=== PATIENT | female | born 1975 | race American Indian/Alaskan Native ===

== ENCOUNTER 2019-06-01 22:21 | Emergency (ER) | payer MEDICAID, OTHER ==
[2019-06-01 22:34] VITALS: BP 155/104
[2019-06-01 23:18] LABS: Basophils # (Auto) 0.1 K/mm3 (0.0-0.1); Basophils % (Auto) 0.8 % (0.0-1.8); Eosinophils # (Auto) 0.1 K/mm3 (0.0-0.4); Eosinophils % (Auto) 1.5 % (0.0-4.3); Hematocrit 32.5 % (30.3-42.9); Hemoglobin 10.9 gm/dl (10.1-14.3); Lymphocytes # (Auto) 2.5 K/mm3 (1.2-5.4); Lymphocytes % (Auto) 26.8 % (13.4-35.0); Mean Corpuscular HGB Conc 34 % (30-34); Mean Corpuscular Volume 80 fl (79-97); Monocytes # (Auto) 0.8 K/mm3 (0.0-0.8); Platelet Count 299 K/mm3 (140-440); Red Blood Count 4.06 M/mm3 (3.65-5.03); Red Cell Distribution Width 17.5 % (13.2-15.2)
[2019-06-02 00:24] LABS: Albumin 3.9 g/dL (3.9-5); Calcium 9.3 mg/dL (8.4-10.2)
[2019-06-02 00:24] LABS: Bilirubin,Urine NEG (Negative); Blood,Urine SM (Negative); Color,Urine Yellow (Yellow); Urobilinogen,Urine < 2.0 mg/dL (<2.0)
--- NOTE | 2019-06-02 00:44 | XRay Report ---
CHEST PA AND LATERAL VIEWS INDICATION: dyspnea. COMPARISON: None. FINDINGS: Support devices: None. Heart: Mildly enlarged Lungs/Pleura: There is pulmonary venous hypertension there may be mild interstitial edema. No consoli dation, significant effusion, or pneumothorax. IMPRESSION: 1. Cardiomegaly. 2. Pulmonary venous hypertension. Signer Name: Valente Mcallister MD Signed: 06/02/2019 12:40 AM Workstation Name: [id number]
[2019-06-02] MEDS ORDERED: LASIX PO ONE (01:30)
[2019-06-02] MEDS ORDERED: K-DUR PO ONE (01:30)
--- NOTE | 2019-06-02 03:03 | Emergency Department Report ---
ED General Adult HPI - General Chief complaint: Abdominal Pain Stated complaint: PAIN IN LEG/STOMACH/BACK/SOB Time Seen by Provider: 06/02/19 00:00 Source: patient Mode of arrival: Ambulatory Limitations: No Limitations - History of Present Illness Initial comments: Patient is a 43-year-old -[place] female with no past medical history presents to the ED with complaint of acute onset persistent diffuse abdominal pain with abdominal fullness and dysuria for the last 2 weeks. The patient also complains of shortness of breath with exertion, and states that she is unable to lay flat on the bed because of shortness of breath. Patient also complains of bilateral lower extremity swelling for the last 1 week. Patient denies chest pain, dizziness, fever, chills, vaginal bleeding, dysuria, urinary frequency and urgency, syncope, cough, sore throat, change in vision, palpitations, diarrhea or nausea and vomiting. Patient states that she has not seen a primary care physician in many years and generally doesn't go to hospitalist. MD Complaint: dyspnea on exertion; orthopnea, abdominal fullness and leg swelling -: Gradual, week(s) (2) Location: chest, abdomen, lower extremity (bilaterally) Radiation: non-radiation Severity scale (0 -10): 8 Quality: aching Consistency: constant Improves with: none Worsens with: movement, other (laying flat) Associated Symptoms: denies other symptoms, shortness of breath, weakness. denies: confusion, chest pain, cough, diaphoresis, fever/chills, headaches, loss of appetite, nausea/vomiting, rash, syncope, other Treatments Prior to Arrival: none - Related Data Previous Rx's Medication Instructions Recorded Last Taken Type Furosemide [Lasix TAB] 40 mg PO QDAY #30 tablet 06/02/19 Unknown Rx Potassium Chloride [Klor-Con M15] 15 meq PO DAILY #30 tab.er.prt 06/02/19 Unknown Rx Allergies Allergy/AdvReac Type Severity Reaction Status Date / Time No Known Allergies Allergy Unverified 02/08/14 14:17 ED Review of Systems ROS: Stated complaint: PAIN IN LEG/STOMACH/BACK/SOB Other details as noted in HPI Constitutional: weakness. denies: chills, fever Eyes: denies: eye pain, eye discharge, vision change ENT: denies: ear pain, throat pain Respiratory: orthopnea, shortness of breath, SOB with exertion. denies: cough, SOB at rest, stridor, wheezing Cardiovascular: dyspnea on exertion, orthopnea, paroxysmal nocturnal dyspnea. denies: chest pain, palpitations, edema, syncope Endocrine: no symptoms reported. denies: see HPI, excessive sweating, flushing, increased hunger, increased thirst, increased urine, unexplained weight gain, unexplained weight loss Gastrointestinal: abdominal pain. denies: nausea, vomiting, diarrhea, constipation, hematemesis Genitourinary: denies: urgency, dysuria, discharge Musculoskeletal: joint swelling (bilateral leg swelling), arthralgia. denies: back pain Skin: denies: rash, lesions Neurological: denies: headache, weakness, paresthesias Psychiatric: denies: anxiety, depression Hematological/Lymphatic: denies: easy bleeding, easy bruising ED Past Medical Hx - Past Medical History Previous Medical History?: Yes Additional medical history: bronchitis - Surgical History Past Surgical History?: Yes Hx Breast Surgery: Yes (reduction bilateral) - Social History Smoking Status: Never Smoker Substance Use Type: None - Medications Home Medications: Home Medications Medication Instructions Recorded Confirmed Last Taken Type Furosemide [Lasix TAB] 40 mg PO QDAY #30 tablet 06/02/19 Unknown Rx Potassium Chloride [Klor-Con M15] 15 meq PO DAILY #30 tab.er.prt 06/02/19 Unknown Rx ED Physical Exam - General Limitations: No Limitations General appearance: alert, in no apparent distress - Head Head exam: Present: atraumatic, normocephalic, normal inspection - Eye Eye exam: Present: normal appearance, PERRL, EOMI. Absent: scleral icterus, conjunctival injection, nystagmus Pupils: Present: normal accommodation - ENT ENT exam: Present: normal exam, normal orophraynx, mucous membranes moist, TM's normal bilaterally, normal external ear exam - Neck Neck exam: Present: normal inspection, full ROM. Absent: tenderness, lymphadenopathy - Respiratory Respiratory exam: Present: normal lung sounds bilaterally. Absent: respiratory distress, wheezes, rales, rhonchi, stridor, chest wall tenderness, accessory muscle use, decreased breath sounds, prolonged expiratory - Cardiovascular Cardiovascular Exam: Present: normal rhythm, tachycardia, normal heart sounds. Absent: systolic murmur, diastolic murmur, rubs, gallop - GI/Abdominal GI/Abdominal exam: Present: soft, normal bowel sounds. Absent: distended, tenderness, guarding, rebound, hyperactive bowel sounds, organomegaly - Rectal Rectal exam: Present: deferred - Extremities Exam Extremities exam: Present: normal inspection, full ROM, normal capillary refill, other (Bilateral lower leg 1+ edema). Absent: tenderness - Back Exam Back exam: Present: normal inspection, full ROM. Absent: tenderness, CVA tenderness (R), CVA tenderness (L), muscle spasm - Neurological Exam Neurological exam: Present: alert, oriented X3, CN II-XII intact, normal gait, reflexes normal - Psychiatric Psychiatric exam: Present: normal affect, normal mood - Skin Skin exam: Present: warm, dry, intact, normal color. Absent: rash ED Course Vital Signs 06/01/19 06/01/19 22:27 22:40 Temperature 98.3 F 98.3 F Pulse Rate 103 H 103 H Respiratory 18 18 Rate Blood Pressure 155/104 Blood Pressure 155/104 [Right] O2 Sat by Pulse 99 99 Oximetry - Reevaluation(s) Reevaluation #1: 06/02/19 03:05 Patient is alert and oriented 3, and is not acute distress, tachycardic in triage. EKG shows normal sinus rhythm with a ventricular rate of 96 bpm and nonspecific T-wave abnormalities in the anterior lateral leads, otherwise no pathological Q waves. Chest x-ray shows mild cardiomegaly and pulmonary venous hypertension. Lab test results were reviewed and shows normal troponin levels for initial and repeat troponin. Creatinine is 1.4. A BNP was 3889, showing acute onset CHF. Patient received Lasix 60 mg by mouth 1 in the ED. On reevaluation, patient's shortness of breath improved significantly with the patient's urine frequently. Patient was discharged home on Lasix 40 mg daily. Potassium 20 mEq twice a day, and V5 today so decided coming to clinic for follow-up, and also referred to the retail loan officer on-call Dr. Gomez for follow-up suspected new onset CHF. Patient was advised to contact Dr. Gomez's office to schedule an appointment for follow up. 06/02/19 03:06 ED Medical Decision Making - Lab Data Result diagrams: 06/01/19 22:36 06/01/19 22:36 - EKG Data EKG shows normal: sinus rhythm Rate: normal - EKG Data Interpretation: normal EKG, nonspecific ST-T wave leslie - Radiology Data Radiology results: report reviewed, image reviewed Chest x-ray shows mild cardiomegaly and pulmonary venous hypertension - Medical Decision Making Patient is alert and oriented 3, and is not acute distress, tachycardic in triage. EKG shows normal sinus rhythm with a ventricular rate of 96 bpm and nonspecific T-wave abnormalities in the anterior lateral leads, otherwise no pathological Q waves. Chest x-ray shows mild cardiomegaly and pulmonary venous hypertension. Lab test results were reviewed and shows normal troponin levels for initial and repeat troponin. Creatinine is 1.4. A BNP was 3889, showing acute onset CHF. Patient received Lasix 60 mg by mouth 1 in the ED. On reevaluation, patient's shortness of breath improved significantly with the patient's urine frequently. Patient was discharged home on Lasix 40 mg daily. Potassium 20 mEq twice a day, and V5 today so decided coming to clinic for foll ow-up, and also referred to the retail loan officer on-call Dr. Gomez for follow-up suspected new onset CHF. Patient was advised to contact Dr. Gomez's office to schedule an appointment for follow up. 06/02/19 03:06 - Differential Diagnosis Dyspnea on exertion; CHF, Pneumonia, abdominal pain Critical care attestation.: If time is entered above; I have spent that time in minutes in the direct care of this critically ill patient, excluding procedure time. ED Disposition Clinical Impression: Shortness of breath on exertion CHF (congestive heart failure) Qualifiers: Heart failure type: unspecified Heart failure chronicity: unspecified Qualified Code(s): I50.9 - Heart failure, unspecified Disposition: DC-01 TO HOME OR SELFCARE Is pt being admited?: No Does the pt Need Aspirin: No Condition: Stable Instructions: Abdominal Pain (ED), Heart Failure (ED), Dyspnea (ED) Additional Instructions: Follow-up with Dr. Gomez, the Lead Shipper for further evaluation or shortness of breath in the next 24-48 hours. Follow-up with [facility] to establish care in 5-7 days. Return to the ED immediately if symptoms get worse. Prescriptions: Potassium Chloride [Klor-Con M15] 15 meq PO DAILY #30 tab.er.prt Furosemide [Lasix TAB] 40 mg PO QDAY #30 tablet [facility] [Primary Care Provider] - 3-5 Days Time of Disposition: 03:13 Print Language: GREENLANDIC
== END 2019-06-02 03:30 | disposition home or self-care (01) ==
LOC: ED 22:21
DX: I11.0 Hypertensive heart disease with heart failure (principal); I50.9 Heart failure, unspecified
CPT/HCPCS: 36415; 71046; 80053; 81001; 83880; 84484; 84703; 85025; 93005; 93010; 99284

== ENCOUNTER 2021-08-26 18:19 | Emergency (ER) | payer SELFPAY ==
[2021-08-26 18:45] VITALS: BP 183/112
--- NOTE | 2021-08-26 19:04 | Emergency Department Report ---
ED Shortness of Breath HPI - General Chief Complaint: Abdominal Pain Stated Complaint: SOB/RT EAR PAIN/FATIGUE Time Seen by Provider: 08/26/21 18:53 Source: patient Mode of arrival: Ambulatory Limitations: No Limitations - History of Present Illness Initial Comments: Ms. Lazaro is a 46 years old female with history of congestive heart failure and hypertension. Patient is not compliant with her medication. Patient stated that she was on furosemide but she does not remember the last time she took it. Patient presented to the ER complaining of shortness of breath and generalized swelling with bilateral lower extremity edema. Patient denied any chest pain, fever or chills. Patient is complaining of abdominal distention and stated that she think that she had fluid in her belly however she denied abdominal pain. MD Complaint: shortness of breath -: days(s) Known History Of: congestive heart failure Associated Symptoms: denies other symptoms Treatments Prior to Arrival: none - Related Data Previous Rx's Medication Instructions Recorded Last Taken Type Furosemide [Lasix TAB] 40 mg PO QDAY #30 tablet 06/02/19 Unknown Rx Potassium Chloride [Klor-Con M15] 15 meq PO DAILY #30 tab.er.prt 06/02/19 Unknown Rx Furosemide [Lasix TAB] 40 mg PO QDAY #30 tablet 08/26/21 Unknown Rx Potassium Chloride [K-Dur] 10 meq PO QDAY #30 tablet 08/26/21 Unknown Rx amLODIPine [Norvasc] 5 mg PO DAILY #30 tab 08/26/21 Unknown Rx Allergies Allergy/AdvReac Type Severity Reaction Status Date / Time No Known Allergies Allergy Unverified 02/08/14 14:17 ED Review of Systems ROS: Stated complaint: SOB/RT EAR PAIN/FATIGUE Other details as noted in HPI Comment: All other systems reviewed and negative Constitutional: denies: chills, fever Respiratory: orthopnea, shortness of breath, SOB with exertion, SOB at rest. denies: wheezing Cardiovascular: denies: chest pain, palpitations Gastrointestinal: denies: abdominal pain, nausea, vomiting, diarrhea, constipation, hematemesis, hematochezia Musculoskeletal: denies: back pain Neurological: denies: headache, weakness, numbness, paresthesias ED Past Medical Hx - Past Medical History Hx Congestive Heart Failure: Yes Additional medical history: bronchitis - Surgical History Hx Breast Surgery: Yes (reduction bilateral) - Social History Smoking Status: Never Smoker Substance Use Type: None - Medications Home Medications: Home Medications Medication Instructions Recorded Confirmed Last Taken Type Furosemide [Lasix TAB] 40 mg PO QDAY #30 tablet 06/02/19 Unknown Rx Potassium Chloride [Klor-Con M15] 15 meq PO DAILY #30 tab.er.prt 06/02/19 Unknown Rx Furosemide [Lasix TAB] 40 mg PO QDAY #30 tablet 08/26/21 Unknown Rx Potassium Chloride [K-Dur] 10 meq PO QDAY #30 tablet 08/26/21 Unknown Rx amLODIPine [Norvasc] 5 mg PO DAILY #30 tab 08/26/21 Unknown Rx ED Physical Exam - General Limitations: No Limitations General appearance: alert, in no apparent distress - Head Head exam: Present: atraumatic, normocephalic, normal inspection - Eye Eye exam: Present: normal appearance - ENT ENT exam: Present: normal exam, normal orophraynx, mucous membranes moist - Neck Neck exam: Present: normal inspection, full ROM. Absent: tenderness, meningismus - Respiratory Respiratory exam: Present: normal lung sounds bilaterally - Cardiovascular Cardiovascular Exam: Present: regular rate, normal rhythm, normal heart sounds - GI/Abdominal GI/Abdominal exam: Present: soft, normal bowel sounds. Absent: distended, tenderness, guarding, rebound, rigid, mass, bruit, pulsatile mass, hernia - Extremities Exam Extremities exam: Present: full ROM, normal capillary refill, pedal edema. Absent: tenderness, joint swelling, calf tenderness - Back Exam Back exam: Present: normal inspection, full ROM. Absent: CVA tenderness (R), CVA tenderness (L) - Neurological Exam Neurological exam: Present: alert, oriented X3, CN II-XII intact - Psychiatric Psychiatric exam: Present: normal mood - Skin Skin exam: Present: warm, intact, normal color ED Course Vital Signs 08/26/21 18:42 Temperature 98.6 F Pulse Rate 94 H Respiratory 18 Rate Blood Pressure 183/112 [Left] O2 Sat by Pulse 98 Oximetry ED Medical Decision Making - Lab Data Result diagrams: 08/26/21 19:05 08/26/21 19:04 - Radiology Data Radiology results: report reviewed - Medical Decision Making Ms. Lazaro is a 46 years old female with history of congestive heart failure and hypertension. Patient is not compliant with her medication. Patient stated that she was on furosemide but she does not remember the last time she took it. Patient presented to the ER complaining of shortness of breath and generalized swelling with bilateral lower extremity edema. Patient denied any chest pain, fever or chills. Patient is complaining of abdominal distention and stated that she think that she had fluid in her belly however she denied abdominal pain. Patient remained stable in the ER with stable vital sign except for elevated blood pressure. Patient received furosemide 60 mg p.o. Chest x-ray is unremarkable. Labs reviewed and is unremarkable except for elevated BNP of more than 3000. Patient given prescription for Lasix and Norvasc and advised to follow-up with her primary doctor in the next 2 to 3 days and to return to the ER if he develop any new symptoms. Critical care attestation.: If time is entered above; I have spent that time in minutes in the direct care of this critically ill patient, excluding procedure time. ED Disposition Clinical Impression: CHF exacerbation, Malignant hypertension Disposition: 01 HOME / SELF CARE / HOMELESS Is pt being admited?: No Condition: Stable Instructions: Heart Failure, Diagnosis, [id number], Hypertension, Adult, Abdominal Pain (ED), Hypertension (ED) Prescriptions: amLODIPine [Norvasc] 5 mg PO DAILY #30 tab Potassium Chloride [K-Dur] 10 meq PO QDAY #30 tablet Furosemide [Lasix TAB] 40 mg PO QDAY #30 tablet Referrals: [facility] [Provider Group] - 3-5 Days
[2021-08-26] MEDS ORDERED: FUROSEMIDE 20 MG TAB PO ONE (19:05)
[2021-08-26 19:37] LABS: Basophils % (Auto) 0.5 % (0.0-1.8); Eosinophils % (Auto) 0.5 % (0.0-4.3); Hematocrit 33.1 % (30.3-42.9); Hemoglobin 10.8 gm/dl (10.1-14.3); Lymphocytes % (Auto) 24.1 % (13.4-35.0); Mean Corpuscular HGB Conc 33 % (30-34); Mean Corpuscular Volume 78 fl (79-97); Monocytes # (Auto) 0.7 K/mm3 (0.0-0.8); Monocytes % (Auto) 8.2 % (0.0-7.3); Platelet Count 363 K/mm3 (140-440); Red Blood Count 4.25 M/mm3 (3.65-5.03); Red Cell Distribution Width 18.6 % (13.2-15.2)
[2021-08-26 19:45] LABS: BUN/Creatinine Ratio 14; Blood Urea Nitrogen 17 mg/dL (7-17); Calcium 9.2 mg/dL (8.4-10.2); Hemolysis Index 0
[2021-08-26 19:49] LABS: Albumin 3.9 g/dL (3.9-5); Bilirubin,Direct 0.3 mg/dL (0-0.2)
--- NOTE | 2021-08-26 19:49 | XRay Report ---
XR chest routine 2V INDICATION / CLINICAL INFORMATION: Dyspnea. COMPARISON: None available. FINDINGS: SUPPORT DEVICES: None. HEART /PULMONARY VASCULATURE: Cardiac silhouette is enlarged without significant pulmonary vasculatur e congestion. LUNGS / PLEURA: No significant pulmonary or pleural abnormality. No pneumothorax. ADDITIONAL FINDINGS: No significant additional findings. IMPRESSION: 1. No acute findings. Signer Name: Alber Johnson MD Signed: 08/26/2021 7:45 PM Workstation Name: [id number]
== END 2021-08-26 22:18 | disposition home or self-care (01) ==
LOC: ED 18:19
DX: I11.0 Hypertensive heart disease with heart failure (principal); I50.9 Heart failure, unspecified; R60.0 Localized edema; Z98.890 Other specified postprocedural states; Z79.899 Other long term (current) drug therapy
CPT/HCPCS: 36415; 71046; 80048; 80076; 83880; 84484; 85025; 99283